=== PATIENT | female | born 1965 | race African-American/Black ===

== ENCOUNTER 2019-06-27 15:13 | Emergency (ER) | payer MEDICAID ==
[~2019-06-27] VITALS: Ht 160 cm; Wt 97.0 kg
[2019-06-27 15:23] VITALS: BP 154/85
== END 2019-06-27 18:55 | disposition left against medical advice (07) ==
LOC: ER 15:13
DX: R10.9 Unspecified abdominal pain (principal); Z53.21 Procedure and treatment not carried out due to patient leaving prior to being seen by health care provider